=== PATIENT | male | born 2005 | race Caucasian/White ===

== ENCOUNTER 2025-05-04 22:37 | Emergency (ER) | payer SELFPAY ==
[2025-05-04] MEDS ORDERED: Dexamethasone 10 MG/ML VIAL ONE (22:52)
[2025-05-04] MEDS ORDERED: predniSONE 20 MG TAB ONE (22:54)
== END 2025-05-04 23:05 | disposition home or self-care (01) ==
LOC: ERS 22:37
DX: J30.2 Other seasonal allergic rhinitis (principal)
CPT/HCPCS: 96372; 99282; J1100; J7512